=== PATIENT | female | born 1935 | race Asian ===

== ENCOUNTER 2021-01-28 15:14 | Emergency (ER) | payer MEDICARE, OTHER ==
[~2021-01-28] VITALS: Ht 134.6 cm; Wt 47.2 kg
[~2021-01-28 15:14] MED LIST: ATEN50TA OR; ATO40T OR; BENA40TA8 OR; GLIP10TA9 OR; METF-370 OR
[2021-01-28 16:26] LABS: Basophils # (auto) 0 10 ^3/uL (0-0.2); Basophils % (auto) 0.4 % (0.0-2.0); Eosinophils # (auto) 0 10 ^3/uL (0-0.8); Eosinophils % (auto) 0.9 % (0.0-7.0); Hematocrit 36.7 % (36.0-46.0); Hemoglobin 12.1 g/dL (12.2-16.2); Lymphocytes # (auto) 0.9 10 ^3/uL (0.4-5.4); Lymphocytes % (auto) 23.4 % (10.0-50.0); Mean Corpuscular Hemoglobin 31.7 pg (28.0-32.0); Mean Corpuscular Hgb Conc. 32.9 g/dL (32.0-36.0); Mean Corpuscular Volume 96.2 fL (80.0-100.0); Monocytes # (auto) 0.4 10 ^3/uL (0-1.3); Monocytes % (auto) 11.1 % (0.0-12.0); Neutrophils # (auto) 2.4 10 ^3/uL (1.6-8.6); Neutrophils % (auto) 64.2 % (37.0-80.0); Nucleated Red Blood Cells % 0.1 %; Red Blood Cells 3.81 10^6/uL (4.0-5.20); Red Cell Distribution Width 14.1 % (11.8-14.3); White Blood Cell 3.8 10^3/uL (4.4-10.8)
[2021-01-28 16:51] LABS: Albumin 3.6 g/dL (3.4-5.0); Calcium 8.8 mg/dL (8.5-10.1); Magnesium 2.7 mg/dL (1.6-2.6); Potassium 4.3 mmol/L (3.5-5.1)
[2021-01-28 17:00] LABS: BUN/Creatinine Ratio 25.5; Bilirubin, Total 0.3 mg/dL (0.2-1.0); Total Protein 7.6 g/dL (6.4-8.2)
[2021-01-28] MEDS ORDERED: cloNIDine HCL 0.1 MG TAB PO ONE (17:15)
[2021-01-28 18:21] LABS: Urine Bacteria NONE SEEN /hpf (None Seen); Urine Blood Negative /uL (Negative); Urine Specific Gravity 1.007 (1.001-1.035)
[2021-01-28 18:41] LABS: Urine WBC None Seen /hpf (0 - 5)
[2021-01-28 20:53] VITALS: BP 165/77
== END 2021-01-28 20:54 | disposition home or self-care (01) ==
LOC: ER 15:14
DX: I10 Essential (primary) hypertension (principal); E11.9 Type 2 diabetes mellitus without complications; E03.9 Hypothyroidism, unspecified; Z79.899 Other long term (current) drug therapy
CPT/HCPCS: 36415; 70450; 71045; 80053; 81001; 83735; 84484; 85025; 93005

== ENCOUNTER → 2021-06-10 | Outpatient (CLI) | payer MEDICARE, OTHER | END | disposition home or self-care (01) | LOC: Rad HDHVI 09:57 | PROVIDERS: ATTEND Internal Medicine Cardiovascular Disease | DX: I73.9 Peripheral vascular disease, unspecified (principal); I10 Essential (primary) hypertension; E78.5 Hyperlipidemia, unspecified | CPT/HCPCS: 93925 ==

== ENCOUNTER 2021-07-14 10:47 | Inpatient (IN) | payer MEDICARE, OTHER ==
[2021-07-14] VITALS (9 sets, daily range): BP systolic 81–128; BP diastolic 40–63
[~2021-07-14] VITALS: Ht 147.3 cm; Wt 66.0 kg
[~2021-07-14 10:47] MED LIST changes: -ATEN50TA OR; -ATO40T OR; +ATOR20TA PO; -BENA40TA8 OR; -GLIP10TA9 OR; +MAGN400T40 PO; +MEMA1TAB5 PO; -METF-370 OR; +METF-370 PO; +OLME40TA9 PO
[2021-07-14] MEDS ORDERED: SODIUM CHL 0.9% 50 ML ONE ×2 (13:14→14:33)
[2021-07-14] MEDS ORDERED: fentaNYL CITRATE 100 MCG/2 ML VL ONE (13:14)
[2021-07-14] MEDS ORDERED: MIDAZOLAM HCL 2MG/2ML 2ml VIAL (1mg/ml) ONE (13:14)
[2021-07-14] MEDS ORDERED: ANGIOMAX 250 MG VIAL IV ONE (13:14)
[2021-07-14] MEDS ORDERED: LIDOCAINE 2%HCL (LOCAL ANESTH.) INJ 10ml MDV ONE (13:18)
[2021-07-14] MEDS ORDERED: NITROGLYCERIN 5MG/ML 10ML VIAL IV ONE (13:52)
[2021-07-14] MEDS ORDERED: VERAPAMIL 2.5MG/ML INJ 2ML VIAL IV ONE (13:59)
[2021-07-14] MEDS ORDERED: IOHEXOL 350 MG/ML 100ML IJ ONE (14:09)
[2021-07-14] MEDS ORDERED: ceFAZolin 1GM VL ONE (14:39)
[2021-07-14] MEDS ORDERED: ceFAZolin 1GM/50ML 50 ML IV ONE (14:39)
[2021-07-14] MEDS ORDERED: hydrALAZINE HCL 20 MG/ML VL ONE (14:42)
[2021-07-14] MEDS ORDERED: ENALAPRILAT 1.25 MG/ML-1ML VIAL IV ONE (14:56)
[2021-07-14] MEDS ORDERED: ACETAMINOPHEN 500 MG TAB PO PRN (15:45)
[2021-07-14] MEDS ORDERED: ONDANSETRON HCL 4 MG/2 ML VIAL IV PRN (15:45)
[2021-07-14] MEDS: HYDROcodone-ACET 5/325MG TAB PO PRN (20:28)
[2021-07-15] VITALS (52 sets, daily range): BP systolic 68–167; BP diastolic 36–124
[2021-07-15] MEDS: SODIUM CHLOR 0.9% PF (SALINE LOCK) 10ML VIAL/SYR IV SCH ×4 (00:49→21:51)
[2021-07-15] MEDS: HYDROcodone-ACET 5/325MG TAB PO PRN (06:19)
[2021-07-15] MEDS ORDERED: SOD CHL 0.45% 1,000 ML IV ONE (08:15)
[2021-07-15] MEDS ORDERED: ONDANSETRON HCL 4 MG/2 ML VIAL IV PRN (08:15)
[2021-07-15] MEDS ORDERED: KETOROLAC TROMETH 30 MG/ML 1ML VIAL IV PRN (08:30)
[2021-07-15] MEDS ORDERED: DOPamine 1600MCG/ML D5W 250 ML IV STA (10:02)
[2021-07-15 10:14] LABS: Basophils # (auto) 0.1 10 ^3/uL (0-0.2); Eosinophils # (auto) 0 10 ^3/uL (0-0.8); Eosinophils % (auto) 0.1 % (0.0-7.0); Lymphocytes # (auto) 0.5 10 ^3/uL (0.4-5.4); Monocytes # (auto) 0.3 10 ^3/uL (0-1.3)
[2021-07-15 10:16] LABS: Basophils % (auto) 2.4 % (0.0-2.0); Hematocrit 17.3 % (36.0-46.0); Lymphocytes % (auto) 8.6 % (10.0-50.0); Mean Corpuscular Hgb Conc. 33.9 g/dL (32.0-36.0); Mean Corpuscular Volume 97.5 fL (80.0-100.0); Monocytes % (auto) 5.3 % (0.0-12.0); Neutrophils # (auto) 4.8 10 ^3/uL (1.6-8.6); Neutrophils % (auto) 83.6 % (37.0-80.0); Red Blood Cells 1.78 10^6/uL (4.0-5.20); Red Cell Distribution Width 13.7 % (11.8-14.3); White Blood Cell 5.8 10^3/uL (4.4-10.8)
[2021-07-15 10:27] LABS: Hemoglobin 5.9 g/dL (12.2-16.2)
[2021-07-15] MEDS: DOPamine 1600MCG/ML D5W 250 ML IV SCH (12:30)
[2021-07-15] MEDS ORDERED: ETOMIDATE (2MG/ML) 20ML VIAL IV ONE (13:08)
[2021-07-15] MEDS ORDERED: SUCCINYLCHOLINE CHLORIDE 20 MG/ML 10ML VIAL IV ONE (13:09)
[2021-07-15] MEDS ORDERED: fentaNYL Drip 2500mCg/250mlNS 250 ML IV ONE (13:12)
[2021-07-15] MEDS ORDERED: MIDAZOLAM DRIP 50 mg/50mL 50 ML IV ONE (13:13)
[2021-07-15] MEDS ORDERED: PHENYLEPHRINE IV 250 ML IV ONE (13:16)
[2021-07-15] MEDS ORDERED: IODIXANOL 320MG/ML 100ML BTL IV ONE (13:17)
[2021-07-15] MEDS ORDERED: LIDOCAINE 2%HCL (LOCAL ANESTH.) INJ 10ml MDV ONE (13:17)
[2021-07-15] MEDS ORDERED: MIDAZOLAM DRIP 50 mg/50mL 50 ML IV SCH (13:30)
[2021-07-15 13:33] LABS: Basophils # (auto) 0 10 ^3/uL (0-0.2); Eosinophils # (auto) 0 10 ^3/uL (0-0.8); Monocytes # (auto) 0.3 10 ^3/uL (0-1.3)
[2021-07-15 13:35] LABS: Basophils % (auto) 0.1 % (0.0-2.0); Hematocrit 18.7 % (36.0-46.0); Lymphocytes # (auto) 0.4 10 ^3/uL (0.4-5.4); Lymphocytes % (auto) 7.7 % (10.0-50.0); Mean Corpuscular Hemoglobin 33.5 pg (28.0-32.0); Mean Corpuscular Hgb Conc. 30.1 g/dL (32.0-36.0); Mean Corpuscular Volume 111.1 fL (80.0-100.0); Monocytes % (auto) 5.3 % (0.0-12.0); Neutrophils % (auto) 86.9 % (37.0-80.0); Red Blood Cells 1.68 10^6/uL (4.0-5.20); Red Cell Distribution Width 15.3 % (11.8-14.3); White Blood Cell 5.7 10^3/uL (4.4-10.8)
[2021-07-15 13:39] LABS: Hemoglobin 5.6 g/dL (12.2-16.2)
[2021-07-15 13:45] LABS: INR 1.33 (0.9-1.15); Partial Thromboplastin Time 30.8 sec (23.6-33.0)
[2021-07-15] MEDS: fentaNYL Drip 2500mCg/250mlNS 250 ML IV SCH (13:45)
[2021-07-15 13:50] LABS: Albumin 2.4 g/dL (3.4-5.0); BUN/Creatinine Ratio 20.9; Calcium 7.5 mg/dL (8.5-10.1); Potassium 4.6 mmol/L (3.5-5.1)
[2021-07-15 13:53] LABS: Bilirubin, Total 0.7 mg/dL (0.2-1.0); Total Protein 4.3 g/dL (6.4-8.2)
[2021-07-15] MEDS ORDERED: SODIUM BICARBONATE 8.4 % INJ 50ML VIAL IV ONE (14:10)
[2021-07-15] MEDS ORDERED: NOREPINEPHRINE 8 MG/250ML KIT 250 ML IV SCH (14:30)
[2021-07-15] MEDS ORDERED: DEXTROSE (50%) 50ML SYRG IV PRN (14:45)
[2021-07-15] MEDS: NOREPINEPHRINE 8 MG/250ML KIT 250 ML IV SCH (14:45)
[2021-07-15] MEDS ORDERED: FUROSEMIDE 40 MG/4 ML VIAL IV ONE (15:00)
[2021-07-15] MEDS: PHENYLEPHRINE IV 250 ML IV SCH ×3 (15:40→22:55)
[2021-07-15] MEDS: MIDAZOLAM DRIP 50 mg/50mL 50 ML IV SCH ×2 (16:25→18:55)
[2021-07-15] MEDS: SODIUM BICARBONATE 50ML VIAL 150 ML in D5W 5% 1,000 ML IV SCH (17:20)
[2021-07-15] MEDS: ACCU-CHEK COMFORT CURVE STRIP VI SCH (17:33)
[2021-07-15] MEDS: InsuLIN REG 1unit/0.01ml Soln (100units/ml) SC SCH (17:33)
[2021-07-15 17:53] LABS: Eosinophils # (auto) 0 10 ^3/uL (0-0.8); Hematocrit 38.7 % (36.0-46.0); Hemoglobin 12.8 g/dL (12.2-16.2); Monocytes # (auto) 0.4 10 ^3/uL (0-1.3); Red Cell Distribution Width 14.7 % (11.8-14.3)
[2021-07-15 17:54] LABS: Basophils # (auto) 0 10 ^3/uL (0-0.2); Basophils % (auto) 0.1 % (0.0-2.0); Eosinophils % (auto) 0.1 % (0.0-7.0); Lymphocytes # (auto) 0.5 10 ^3/uL (0.4-5.4); Lymphocytes % (auto) 6.8 % (10.0-50.0); Mean Corpuscular Hgb Conc. 33.2 g/dL (32.0-36.0); Mean Corpuscular Volume 93.2 fL (80.0-100.0); Monocytes % (auto) 5.9 % (0.0-12.0); Neutrophils # (auto) 5.8 10 ^3/uL (1.6-8.6); Neutrophils % (auto) 87.1 % (37.0-80.0); Nucleated Red Blood Cells % 0.2 %; Red Blood Cells 4.15 10^6/uL (4.0-5.20); White Blood Cell 6.6 10^3/uL (4.4-10.8)
[2021-07-15 20:47] LABS: Hemoglobin 12.4 g/dL (12.2-16.2); Nucleated Red Blood Cells % 0.1 %; White Blood Cell 7.1 10^3/uL (4.4-10.8)
[2021-07-15 20:49] LABS: Basophils # (auto) 0 10 ^3/uL (0-0.2); Basophils % (auto) 0.1 % (0.0-2.0); Eosinophils # (auto) 0 10 ^3/uL (0-0.8); Hematocrit 35.9 % (36.0-46.0); Lymphocytes # (auto) 0.9 10 ^3/uL (0.4-5.4); Lymphocytes % (auto) 12.4 % (10.0-50.0); Mean Corpuscular Hemoglobin 31.3 pg (28.0-32.0); Mean Corpuscular Hgb Conc. 34.5 g/dL (32.0-36.0); Mean Corpuscular Volume 90.6 fL (80.0-100.0); Monocytes # (auto) 0.1 10 ^3/uL (0-1.3); Monocytes % (auto) 2.1 % (0.0-12.0); Neutrophils # (auto) 6.1 10 ^3/uL (1.6-8.6); Neutrophils % (auto) 85.4 % (37.0-80.0); Red Blood Cells 3.96 10^6/uL (4.0-5.20); Red Cell Distribution Width 14.9 % (11.8-14.3)
[2021-07-15] MEDS: ceFAZolin 1GM/50ML 50 ML IV SCH (21:50)
[2021-07-16] VITALS (102 sets, daily range): BP systolic 67–127; BP diastolic 39–84
[2021-07-16] MEDS: ACCU-CHEK COMFORT CURVE STRIP VI SCH ×5 (00:29→23:50)
[2021-07-16] MEDS: InsuLIN REG 1unit/0.01ml Soln (100units/ml) SC SCH ×4 (00:30→18:17)
[2021-07-16 01:04] LABS: Hematocrit 38.1 % (36.0-46.0); Hemoglobin 13.1 g/dL (12.2-16.2); Mean Corpuscular Hemoglobin 31.3 pg (28.0-32.0); Mean Corpuscular Hgb Conc. 34.5 g/dL (32.0-36.0); Mean Corpuscular Volume 90.7 fL (80.0-100.0); Red Blood Cells 4.19 10^6/uL (4.0-5.20); White Blood Cell 6.3 10^3/uL (4.4-10.8)
[2021-07-16 01:09] LABS: Basophils % (manual) 0 (0.0-2.0); Blast Cells 0; Eosinophils % (manual) 0 (0-7); Metamyelocytes % 0; Myelocytes % 0; Promyelocytes % 0; Reactive Lymphocytes 0
[2021-07-16] MEDS: PHENYLEPHRINE IV 250 ML IV SCH ×2 (01:38→05:21)
[2021-07-16 01:47] LABS: Band Neutrophils % (manual) 15; Lymphocytes % (manual) 20 (10.0-50.0); Monocytes % (manual) 3 (0-12)
[2021-07-16] MEDS: NOREPINEPHRINE 8 MG/250ML KIT 250 ML IV SCH ×2 (03:45→17:54)
[2021-07-16] MEDS ORDERED: SODIUM BICARBONATE 8.4 % INJ 50ML VIAL IV ONE (05:14)
[2021-07-16] MEDS: SODIUM BICARBONATE 50ML VIAL 150 ML in D5W 5% 1,000 ML IV SCH (05:20)
[2021-07-16] MEDS: ceFAZolin 1GM/50ML 50 ML IV SCH ×2 (06:17→13:31)
[2021-07-16] MEDS: SODIUM CHLOR 0.9% PF (SALINE LOCK) 10ML VIAL/SYR IV SCH ×3 (06:17→21:28)
[2021-07-16 06:31] LABS: Basophils # (auto) 0 10 ^3/uL (0-0.2); Eosinophils # (auto) 0 10 ^3/uL (0-0.8); Monocytes # (auto) 0.3 10 ^3/uL (0-1.3); Neutrophils # (auto) 2.6 10 ^3/uL (1.6-8.6); White Blood Cell 3.7 10^3/uL (4.4-10.8)
[2021-07-16 06:34] LABS: Basophils % (auto) 0.4 % (0.0-2.0); Eosinophils % (auto) 0.3 % (0.0-7.0); Hematocrit 34.5 % (36.0-46.0); Hemoglobin 12.2 g/dL (12.2-16.2); Lymphocytes # (auto) 0.8 10 ^3/uL (0.4-5.4); Lymphocytes % (auto) 20.6 % (10.0-50.0); Mean Corpuscular Hemoglobin 31.8 pg (28.0-32.0); Mean Corpuscular Hgb Conc. 35.5 g/dL (32.0-36.0); Mean Corpuscular Volume 89.6 fL (80.0-100.0); Monocytes % (auto) 9.2 % (0.0-12.0); Neutrophils % (auto) 69.5 % (37.0-80.0); Nucleated Red Blood Cells % 0.2 %; Red Blood Cells 3.84 10^6/uL (4.0-5.20); Red Cell Distribution Width 14.8 % (11.8-14.3)
[2021-07-16 06:38] LABS: INR 1.23 (0.9-1.15); Partial Thromboplastin Time 35.4 sec (23.6-33.0)
[2021-07-16 06:42] LABS: Potassium 4.1 mmol/L (3.5-5.1)
[2021-07-16 06:52] LABS: Albumin 2.1 g/dL (3.4-5.0); BUN/Creatinine Ratio 17.7; Calcium 6.9 mg/dL (8.5-10.1)
[2021-07-16 06:54] LABS: Bilirubin, Total 0.8 mg/dL (0.2-1.0)
[2021-07-16] MEDS: PHENYLEPHRINE INJ 80 MG in SODIUM CHL 0.9% 242 ML IV SCH ×2 (08:30→16:47)
[2021-07-16] MEDS: FAMOTIDINE (10MG/ML) 2ML VL IV SCH (09:26)
[2021-07-16] MEDS: fentaNYL Drip 2500mCg/250mlNS 250 ML IV SCH (11:16)
[2021-07-16] MEDS: MIDAZOLAM DRIP 50 mg/50mL 50 ML IV SCH (11:17)
[2021-07-16] MEDS: DOPamine 1600MCG/ML D5W 250 ML IV SCH (12:12)
[2021-07-16] MEDS: PIPERACILLIN-TAZOB 2.25GM 50 ML IV SCH ×2 (18:17→23:50)
[2021-07-17] VITALS (104 sets, daily range): BP systolic 79–146; BP diastolic 43–77
[2021-07-17] MEDS: NOREPINEPHRINE 8 MG/250ML KIT 250 ML IV SCH ×3 (00:01→09:31)
[2021-07-17 03:55] LABS: Basophils # (auto) 0 10 ^3/uL (0-0.2); Eosinophils # (auto) 0 10 ^3/uL (0-0.8); Hematocrit 30.3 % (36.0-46.0); Lymphocytes # (auto) 0.3 10 ^3/uL (0.4-5.4); Mean Corpuscular Volume 93.1 fL (80.0-100.0); Monocytes # (auto) 0.3 10 ^3/uL (0-1.3); Neutrophils # (auto) 2.2 10 ^3/uL (1.6-8.6); Red Blood Cells 3.25 10^6/uL (4.0-5.20); White Blood Cell 2.8 10^3/uL (4.4-10.8)
[2021-07-17 03:57] LABS: Basophils % (auto) 0.3 % (0.0-2.0); Eosinophils % (auto) 0.7 % (0.0-7.0); Hemoglobin 10.4 g/dL (12.2-16.2); Mean Corpuscular Hemoglobin 32.1 pg (28.0-32.0); Mean Corpuscular Hgb Conc. 34.4 g/dL (32.0-36.0); Monocytes % (auto) 9.9 % (0.0-12.0); Neutrophils % (auto) 79.1 % (37.0-80.0); Nucleated Red Blood Cells % 0.3 %; Red Cell Distribution Width 15.8 % (11.8-14.3)
[2021-07-17 04:01] LABS: BUN/Creatinine Ratio 16.3; Calcium 6.8 mg/dL (8.5-10.1); Magnesium 2.6 mg/dL (1.6-2.6); Potassium 4.9 mmol/L (3.5-5.1)
[2021-07-17] MEDS: PHENYLEPHRINE INJ 80 MG in SODIUM CHL 0.9% 242 ML IV SCH (05:18)
[2021-07-17] MEDS ORDERED: SODIUM CHLORIDE 0.9% 500 ML IV ONE (05:45)
[2021-07-17] MEDS: InsuLIN REG 1unit/0.01ml Soln (100units/ml) SC SCH ×5 (06:00→23:40)
[2021-07-17] MEDS: SODIUM CHLOR 0.9% PF (SALINE LOCK) 10ML VIAL/SYR IV SCH ×4 (06:22→23:40)
[2021-07-17] MEDS: ACCU-CHEK COMFORT CURVE STRIP VI SCH ×4 (06:22→23:37)
[2021-07-17] MEDS: PIPERACILLIN-TAZOB 2.25GM 50 ML IV SCH ×4 (06:22→23:37)
[2021-07-17] MEDS ORDERED: SODIUM BICARBONATE 8.4 % INJ 50ML VIAL IV ONE (08:30)
[2021-07-17] MEDS ORDERED: SODIUM CHLORIDE 0.9% 1,000 ML IV ONE ×2 (08:45→11:00)
[2021-07-17] MEDS: FAMOTIDINE (10MG/ML) 2ML VL IV SCH (09:40)
[2021-07-17] MEDS: fentaNYL Drip 2500mCg/250mlNS 250 ML IV SCH (10:24)
[2021-07-17] MEDS: DIGOXIN (250MCG/ML) 2 ML AMPULE IV SCH ×2 (12:57→18:03)
[2021-07-17] MEDS: DOPamine 1600MCG/ML D5W 250 ML IV SCH (13:00)
[2021-07-17] MEDS: ALBUMIN 25% 100 ML IV SCH ×2 (15:59→17:31)
[2021-07-17] MEDS: MIDAZOLAM DRIP 50 mg/50mL 50 ML IV SCH (17:24)
[2021-07-17] MEDS ORDERED: VASOPRESSIN 50 UNITS in D5W 5% 247.5 ML IV SCH (20:30)
[2021-07-18] VITALS (67 sets, daily range): BP systolic 83–126; BP diastolic 41–58
[2021-07-18 03:53] LABS: Mean Corpuscular Hemoglobin 31.9 pg (28.0-32.0); Mean Corpuscular Hgb Conc. 34.5 g/dL (32.0-36.0); Mean Corpuscular Volume 92.5 fL (80.0-100.0); White Blood Cell 2.9 10^3/uL (4.4-10.8)
[2021-07-18 03:56] LABS: Hematocrit 23.1 % (36.0-46.0); Red Blood Cells 2.49 10^6/uL (4.0-5.20); Red Cell Distribution Width 15.9 % (11.8-14.3)
[2021-07-18 04:09] LABS: BUN/Creatinine Ratio 18.1; Calcium 6.5 mg/dL (8.5-10.1); Potassium 5.4 mmol/L (3.5-5.1)
[2021-07-18 04:13] LABS: Basophils % (manual) 0 (0.0-2.0); Blast Cells 0; Promyelocytes % 0; Reactive Lymphocytes 0
[2021-07-18] MEDS: PIPERACILLIN-TAZOB 2.25GM 50 ML IV SCH ×2 (05:00→12:12)
[2021-07-18] MEDS: ACCU-CHEK COMFORT CURVE STRIP VI SCH ×2 (05:56→12:13)
[2021-07-18] MEDS: InsuLIN REG 1unit/0.01ml Soln (100units/ml) SC SCH ×2 (05:59→12:00)
[2021-07-18] MEDS ORDERED: SODIUM ZIRCONIUM CYCL 10 GM PAK PO ONE (06:30)
[2021-07-18] MEDS: PHENYLEPHRINE INJ 80 MG in SODIUM CHL 0.9% 242 ML IV SCH (07:30)
[2021-07-18] MEDS: NOREPINEPHRINE 8 MG/250ML KIT 250 ML IV SCH (08:00)
[2021-07-18 09:12] LABS: Band Neutrophils % (manual) 13; Eosinophils % (manual) 1 (0-7); Lymphocytes % (manual) 13 (10.0-50.0); Metamyelocytes % 3; Monocytes % (manual) 3 (0-12); Myelocytes % 3
[2021-07-18] MEDS ORDERED: SODIUM BICARB 50ML SYR 50 ML in SOD CHL 0.45% 1,000 ML IV SCH (09:30)
[2021-07-18] MEDS: FAMOTIDINE (10MG/ML) 2ML VL IV SCH (09:51)
[2021-07-18] MEDS: fentaNYL Drip 2500mCg/250mlNS 250 ML IV SCH (09:56)
[2021-07-18] MEDS ORDERED: BUMETANIDE 2.5mg/10ml (0.25 mg/ml) INJ IV ONE (11:00)
[2021-07-18] MEDS ORDERED: LORazepam 2MG/ML-1ML VIAL IV PRN (13:15)
[2021-07-18] MEDS ORDERED: MORPHINE SULFATE INJECTION 2 MG/ML SYRG IV PRN (13:15)
[2021-07-18] MEDS: SODIUM CHLOR 0.9% PF (SALINE LOCK) 10ML VIAL/SYR IV SCH (13:58)
[2021-07-18] MEDS ORDERED: FUROSEMIDE 100 MG/10ML VIAL IV SCH (18:00)
== END 2021-07-18 23:30 | DRG 853 ==
LOC: CATH 10:47 → TELE 15:44 → EAST 17:38 → ICU WEST 07-15 11:55 → UNDODISIN 07-19 01:22
PROVIDERS: ADMIT Internal Medicine Cardiovascular Disease; ATTEND Internal Medicine
PROC: 047M3ZZ Dilation of Right Popliteal Artery, Percutaneous Approach (ICD-10-PCS; 2021-07-14)
PROC: 04CM3ZZ Extirpation of Matter from Right Popliteal Artery, Percutaneous Approach (ICD-10-PCS; 2021-07-14)
PROC: B41GYZZ Fluoroscopy of Left Lower Extremity Arteries using Other Contrast (ICD-10-PCS; 2021-07-14)
PROC: B41FYZZ Fluoroscopy of Right Lower Extremity Arteries using Other Contrast (ICD-10-PCS; 2021-07-14)
PROC: 04VJ3DZ Restriction of Left External Iliac Artery with Intraluminal Device, Percutaneous Approach (ICD-10-PCS; principal; 2021-07-15)
PROC: 02HV33Z Insertion of Infusion Device into Superior Vena Cava, Percutaneous Approach (ICD-10-PCS; 2021-07-15)
PROC: 30233N1 Transfusion of Nonautologous Red Blood Cells into Peripheral Vein, Percutaneous Approach (ICD-10-PCS; 2021-07-15)
PROC: 5A1945Z Respiratory Ventilation, 24-96 Consecutive Hours (ICD-10-PCS; 2021-07-15)
PROC: 0BH17EZ Insertion of Endotracheal Airway into Trachea, Via Natural or Artificial Opening (ICD-10-PCS; 2021-07-15)
PROC: B41CYZZ Fluoroscopy of Pelvic Arteries using Other Contrast (ICD-10-PCS; 2021-07-15)
DX: A41.9 Sepsis, unspecified organism (principal); J96.00 Acute respiratory failure, unspecified whether with hypoxia or hypercapnia; N17.0 Acute kidney failure with tubular necrosis; R65.21 Severe sepsis with septic shock; I50.30 Unspecified diastolic (congestive) heart failure; D62 Acute posthemorrhagic anemia; G93.40 Encephalopathy, unspecified; R57.1 Hypovolemic shock; I25.10 Atherosclerotic heart disease of native coronary artery without angina pectoris; J44.9 Chronic obstructive pulmonary disease, unspecified; E78.5 Hyperlipidemia, unspecified; I48.91 Unspecified atrial fibrillation; Z95.820 Peripheral vascular angioplasty status with implants and grafts; D69.6 Thrombocytopenia, unspecified; E87.5 Hyperkalemia; S30.1XXA Contusion of abdominal wall, initial encounter; R31.9 Hematuria, unspecified; E11.51 Type 2 diabetes mellitus with diabetic peripheral angiopathy without gangrene; F03.90 Unspecified dementia, unspecified severity, without behavioral disturbance, psychotic disturbance, mood disturbance, and anxiety; Z20.822 Contact with and (suspected) exposure to COVID-19; Z51.5 Encounter for palliative care; X58.XXXA Exposure to other specified factors, initial encounter; Y93.89 Activity, other specified; Y92.89 Other specified places as the place of occurrence of the external cause; Y99.8 Other external cause status; I11.0 Hypertensive heart disease with heart failure; Z82.5 Family history of asthma and other chronic lower respiratory diseases; N94.89 Other specified conditions associated with female genital organs and menstrual cycle
CPT/HCPCS: 36415; 36600; 37221; 37229; 71045; 74176; 75716; 75736; 80048; 80053; 82805; 82962; 83735; 83880; 85007; 85025; 85027; 85610; 85730; 86850; 86900; 86901; 86920; 87070; 87205; 94002; 94003; 99152; 99153; A4565; C1724; C1874; G0378; J0330; J0690; J1885; J2001; J2250; J2405; J2543; J3490; J7060; P9047; Q9967